=== PATIENT | male | born 1935 | race Two or more races ===

== ENCOUNTER 2019-11-23 14:25 | Outpatient (CLI) | payer MEDICARE | END 2019-11-23 23:59 | disposition home or self-care (01) | LOC: MSC 14:25 | PROVIDERS: ATTEND Internal Medicine | DX: I10 Essential (primary) hypertension (principal); R53.81 Other malaise; I25.10 Atherosclerotic heart disease of native coronary artery without angina pectoris; M54.9 Dorsalgia, unspecified; N40.0 Benign prostatic hyperplasia without lower urinary tract symptoms ==

== ENCOUNTER 2020-05-27 09:05 | Outpatient (CLI) | payer MEDICARE, MEDICAID ==
[2020-05-27 10:03] LABS: BASOPHILS # (AUTO) 0.1 /CMM (0.0-0.2); BASOPHILS % (AUTO) 0.7 % (0.0-2.0); EOSINOPHILS % (AUTO) 5.5 % (0.0-6.0); HEMATOCRIT 42 % (39-51); HEMOGLOBIN 14.3 g/dL (13.5-17.5); LYMPHOCYTES # (AUTO) 1.9 /CMM (0.8-4.8); LYMPHOCYTES % (AUTO) 23.1 % (20.0-44.0); MEAN CORPUSCULAR HGB CONC 34 g/dl (31.0-36.0); MEAN CORPUSCULAR VOLUME 92 fL (80-96); MONOCYTES % (AUTO) 11.5 % (2.0-12.0); NEUTROPHILS % (AUTO) 59.2 % (43.0-81.0); PLATELET COUNT (AUTO) 207 /CMM (150-450); RED BLOOD CELL COUNT(AUTO) 4.55 MIL/uL (4.5-6.0); WHITE BLOOD COUNT (AUTO) 8.4 K/uL (4.3-11.0)
[2020-05-27 10:43] LABS: BILIRUBIN,URINE NEGATIVE (NEGATIVE); COLOR,URINE YELLOW (YELLOW); LEUKOCYTE ESTERASE ,URINE NEGATIVE (NEGATIVE); NITRITE, URINE NEGATIVE (NEGATIVE); PH,URINE 5.5 (5.0-8.0); PROTEIN,URINE NEGATIVE (NEGATIVE); UGLUCOSE NEGATIVE (NEGATIVE); UROBILINOGEN,URINE 0.2 EU/dL (0.2)
[2020-05-27 11:00] LABS: ALBUMIN 3.5 g/dL (3.4-5.0); CALCIUM, SERUM 9.4 mg/dL (8.5-10.1); CREATININE 1.1 mg/dL (0.6-1.3); MAGNESIUM 2.2 mg/dL (1.8-2.4); PHOSPHORUS 3.6 mg/dL (2.5-4.9); POTASSIUM 3.9 mmol/L (3.5-5.1); TOTAL PROTEIN, SERUM 7.3 g/dL (6.4-8.2)
[2020-05-27 11:49] LABS: BACTERIA,URINE None seen /HPF (None Seen); RBC,URINE 0-2 /HPF (0-2); SQUAMOUS EPITHELIAL CELL,UR Rare /HPF (None Seen)
== END 2020-05-27 23:59 | disposition home or self-care (01) ==
LOC: MSC 09:05
PROVIDERS: ATTEND Internal Medicine
DX: M54.5 Low back pain (principal); I10 Essential (primary) hypertension; I25.10 Atherosclerotic heart disease of native coronary artery without angina pectoris; Z95.1 Presence of aortocoronary bypass graft; N40.0 Benign prostatic hyperplasia without lower urinary tract symptoms; R53.81 Other malaise; Z79.01 Long term (current) use of anticoagulants; Z79.899 Other long term (current) drug therapy
CPT/HCPCS: 36415; 72110; 80053; 80061; 81001; 82306; 82607; 82746; 83036; 83735; 84100; 85025; G0463

== ENCOUNTER 2020-05-29 09:45 | Outpatient (CLI) | payer MEDICARE, MEDICAID, OTHER | END 2020-05-29 23:59 | disposition home or self-care (01) | LOC: MSC 09:45 | PROVIDERS: ATTEND Internal Medicine | DX: Z09 Encounter for follow-up examination after completed treatment for conditions other than malignant neoplasm (principal); I10 Essential (primary) hypertension; M54.9 Dorsalgia, unspecified; I25.10 Atherosclerotic heart disease of native coronary artery without angina pectoris; N40.0 Benign prostatic hyperplasia without lower urinary tract symptoms; R53.81 Other malaise; Z71.89 Other specified counseling; Z79.899 Other long term (current) drug therapy ==

== ENCOUNTER 2020-12-09 09:54 | Outpatient (CLI) | payer MEDICARE, OTHER | END 2020-12-09 23:59 | disposition home or self-care (01) | LOC: MSC 09:54 | PROVIDERS: ATTEND Internal Medicine | DX: M54.5 Low back pain (principal); I10 Essential (primary) hypertension; I25.10 Atherosclerotic heart disease of native coronary artery without angina pectoris; Z79.01 Long term (current) use of anticoagulants; N40.0 Benign prostatic hyperplasia without lower urinary tract symptoms; R53.81 Other malaise; Z79.899 Other long term (current) drug therapy ==

== ENCOUNTER 2021-06-16 09:57 | Outpatient (CLI) | payer MEDICARE, OTHER ==
[2021-06-16 12:44] LABS: BASOPHILS % (AUTO) 0.4 % (0.0-2.0); EOSINOPHILS % (AUTO) 7.1 % (0.0-6.0); HEMATOCRIT 41 % (39-51); HEMOGLOBIN 13.6 g/dL (13.5-17.5); LYMPHOCYTES # (AUTO) 2.9 K/uL (0.8-4.8); LYMPHOCYTES % (AUTO) 36.1 % (20.0-44.0); MEAN CORPUSCULAR HGB CONC 33 g/dl (31.0-36.0); MEAN CORPUSCULAR VOLUME 93 fL (80-96); MONOCYTES # (AUTO) 0.8 K/uL (0.1-1.30); MONOCYTES % (AUTO) 10.3 % (2.0-12.0); NEUTROPHILS # (AUTO) 3.7 K/uL (1.8-8.9); NEUTROPHILS % (AUTO) 46.1 % (43.0-81.0); PLATELET COUNT (AUTO) 218 K/uL (150-450); RED BLOOD CELL COUNT(AUTO) 4.45 MIL/uL (4.5-6.0); WHITE BLOOD COUNT (AUTO) 7.9 K/uL (4.3-11.0)
[2021-06-16 13:10] LABS: CREATININE, URINE < 13.0 MG/DL (30.0-125.0)
[2021-06-16 13:16] LABS: CHOLESTEROL 142 mg/dL (<200); HDL CHOLESTEROL 46 mg/dL (40-60); LDL 81 mg/dL (0-99); TRIGLYCERIDES 95 mg/dL (30-150)
[2021-06-16 13:29] LABS: BILIRUBIN,URINE NEGATIVE (NEGATIVE); LEUKOCYTE ESTERASE ,URINE NEGATIVE (NEGATIVE); NITRITE, URINE NEGATIVE (NEGATIVE); PH,URINE 6.5 (5.0-8.0); PROTEIN,URINE NEGATIVE (NEGATIVE); UGLUCOSE NEGATIVE (NEGATIVE); UROBILINOGEN,URINE 0.2 EU/dL (0.2)
[2021-06-16 13:30] LABS: URINE TOTAL PROTEIN < 2.0 mg/dL (0-11.9)
[2021-06-16 13:32] LABS: COLOR,URINE LIGHT YELLOW (YELLOW)
[2021-06-16 13:38] LABS: ALANINE AMINOTRANSFERASE 32 U/L (12-78); ALBUMIN 3.6 g/dL (3.4-5.0); ALKALINE PHOSPHATASE 113 U/L (46-116); ASPARTATE AMINOTRANSFERASE 28 U/L (15-37); BILIRUBIN,TOTAL 0.9 mg/dL (0.2-1.0); CALCIUM, SERUM 9.3 mg/dL (8.5-10.1); CARBON DIOXIDE 30 mmol/L (21-32); CHLORIDE 103 mmol/L (98-107); GLUCOSE 98 mg/dL (74-106); MAGNESIUM 2.2 mg/dL (1.8-2.4); PHOSPHORUS 3.1 mg/dL (2.5-4.9); POTASSIUM 3.8 mmol/L (3.5-5.1); SODIUM SERUM 139 mmol/L (136-145); TOTAL PROTEIN, SERUM 7.2 g/dL (6.4-8.2); UREA NITROGEN, BLOOD 18 mg/dL (7-18)
[2021-06-16 13:58] LABS: BACTERIA,URINE None seen /HPF (None Seen); RBC,URINE NONE SEEN /HPF (0-2); WBC,URINE NONE SEEN /HPF (0-3)
[2021-06-16 13:59] LABS: SQUAMOUS EPITHELIAL CELL,UR None Seen /HPF (None Seen)
== END 2021-06-16 23:59 | disposition home or self-care (01) ==
LOC: MSC 09:57
PROVIDERS: ATTEND Internal Medicine
DX: M54.50 Low back pain, unspecified (principal); I10 Essential (primary) hypertension; I25.10 Atherosclerotic heart disease of native coronary artery without angina pectoris; Z95.1 Presence of aortocoronary bypass graft; N40.0 Benign prostatic hyperplasia without lower urinary tract symptoms; R53.81 Other malaise; Z79.899 Other long term (current) drug therapy
CPT/HCPCS: 36415; 80053; 80061; 81001; 82043; 82570 ×2; 82607; 83735; 84100; 84155; 85025; G0463

== ENCOUNTER 2021-06-30 09:57 | Outpatient (CLI) | payer MEDICARE, OTHER | END 2021-06-30 23:59 | disposition home or self-care (01) | LOC: US 09:57 | PROVIDERS: ATTEND Internal Medicine | DX: N40.0 Benign prostatic hyperplasia without lower urinary tract symptoms (principal); N18.9 Chronic kidney disease, unspecified; M47.817 Spondylosis without myelopathy or radiculopathy, lumbosacral region; M48.07 Spinal stenosis, lumbosacral region; M43.16 Spondylolisthesis, lumbar region | CPT/HCPCS: 72131-TC; 76770-TC ==

== ENCOUNTER 2022-02-23 09:37 | Outpatient (CLI) | payer MEDICARE, OTHER | END 2022-02-23 23:59 | disposition home or self-care (01) | LOC: MSC 09:37 | PROVIDERS: ATTEND Internal Medicine | DX: M54.50 Low back pain, unspecified (principal); I10 Essential (primary) hypertension; I25.10 Atherosclerotic heart disease of native coronary artery without angina pectoris; Z95.1 Presence of aortocoronary bypass graft; N40.0 Benign prostatic hyperplasia without lower urinary tract symptoms; R53.81 Other malaise ==

== ENCOUNTER 2022-10-28 09:41 | Outpatient (CLI) | payer MEDICARE, OTHER ==
[2022-10-28 11:26] LABS: BASOPHILS # (AUTO) 0.1 K/uL (0.0-0.2); BASOPHILS % (AUTO) 0.7 % (0.0-2.0); EOSINOPHILS # (AUTO) 0.6 K/uL (0.0-0.7); EOSINOPHILS % (AUTO) 7.6 % (0.0-6.0); HEMATOCRIT 39 % (39-51); HEMOGLOBIN 13.3 g/dL (13.5-17.5); LYMPHOCYTES # (AUTO) 2.3 K/uL (0.8-4.8); LYMPHOCYTES % (AUTO) 29.5 % (20.0-44.0); MEAN CORPUSCULAR HEMOGLOBIN 31 PG (26.0-33.0); MEAN CORPUSCULAR HGB CONC 34 g/dl (31.0-36.0); MEAN CORPUSCULAR VOLUME 91 fL (80-96); MONOCYTES # (AUTO) 0.8 K/uL (0.1-1.30); MONOCYTES % (AUTO) 9.5 % (2.0-12.0); NEUTROPHILS # (AUTO) 4.2 K/uL (1.8-8.9); NEUTROPHILS % (AUTO) 52.7 % (43.0-81.0); PLATELET COUNT (AUTO) 199 K/uL (150-450); RED BLOOD CELL COUNT(AUTO) 4.31 MIL/uL (4.5-6.0); WHITE BLOOD COUNT (AUTO) 7.9 K/uL (4.3-11.0)
[2022-10-28 11:33] LABS: IRON, SERUM 74 ug/dl (50-175); TOTAL IRON BINDING CAPACITY 228 ug/dl (250-450)
[2022-10-28 11:43] LABS: CHOLESTEROL 130 mg/dL (<200); FERRITIN 118 ng/mL (8-388); FREE T4 (FREE THYROXINE) 1.11 ng/dL (0.76-1.46); HDL CHOLESTEROL 45 mg/dL (40-60); LDL 70 mg/dL (0-99); THYROID STIMULATING HORMONE 3.396 uIU/mL (0.358-3.74); TRIGLYCERIDES 76 mg/dL (30-150)
[2022-10-28 11:49] LABS: ERYTHROCYTE SEDIMENTATION RATE 17 MM/HR (0-20)
[2022-10-28 12:03] LABS: ALANINE AMINOTRANSFERASE 26 U/L (12-78); ALBUMIN 3.5 g/dL (3.4-5.0); ALKALINE PHOSPHATASE 98 U/L (46-116); ASPARTATE AMINOTRANSFERASE 16 U/L (15-37); BILIRUBIN,TOTAL 0.7 mg/dL (0.2-1.0); CALCIUM, SERUM 9.3 mg/dL (8.5-10.1); CARBON DIOXIDE 26 mmol/L (21-32); CHLORIDE 105 mmol/L (98-107); GLUCOSE 117 mg/dL (74-106); MAGNESIUM 2.1 mg/dL (1.8-2.4); PHOSPHORUS 2.8 mg/dL (2.5-4.9); SODIUM SERUM 139 mmol/L (136-145); TOTAL PROTEIN, SERUM 7.1 g/dL (6.4-8.2); UREA NITROGEN, BLOOD 19 mg/dL (7-18)
[2022-10-28 12:14] LABS: C-REACTIVE PROTEIN < 0.2 mg/dL (0.0-0.9)
[2022-10-29 07:07] LABS: VIT D, 25-HYDROXY 28.2 ng/mL (30.0-100.0)
[2022-10-29 08:07] LABS: FOLIC ACID 12.6 ng/mL (>3.0)
== END 2022-10-28 23:59 | disposition home or self-care (01) ==
LOC: MSC 09:41
PROVIDERS: ATTEND Internal Medicine
DX: Z00.00 Encounter for general adult medical examination without abnormal findings (principal); M54.9 Dorsalgia, unspecified; I10 Essential (primary) hypertension; I25.10 Atherosclerotic heart disease of native coronary artery without angina pectoris; Z95.1 Presence of aortocoronary bypass graft; N40.0 Benign prostatic hyperplasia without lower urinary tract symptoms; R53.81 Other malaise; Z79.899 Other long term (current) drug therapy
CPT/HCPCS: 80061; 85025; 83540; 83735; 83036; 84100; 85652; 36415; 84439; 82746; 84443; 82607; 80053; 82728; 86140; 82306; G0463